=== PATIENT | female | born 1950 | race Caucasian/White ===

== ENCOUNTER 2016-08-28 16:54 | Emergency (ER) | payer BC ==
[~2016-08-28] VITALS: Ht 157.5 cm; Wt 112.0 kg
[2016-08-28 16:58] VITALS: BP 140/67; PULSE 80; RESP 20; TEMP 98.9; O2SAT 97
--- NOTE | 2016-08-28 17:08 | PD ---
Physical Exam Date Seen by Provider: Aug 28, 2016 Time Seen by Provider: 17:07 Narrative 65 yr old female here with right knee pain. Patient says she has been having some issues with her knee and recently hear and felt a tearing type of pain. She has recently traveled on a plane for 12 hours and also had a 1 hour bus trip. She went to an urgent care and had xrays done (negative), but was told to get checked for DVT. She is awaiting bed placement. Data Data Last Documented VS Vital Signs Date Time Temp Pulse Resp B/P Pulse Ox O2 Delivery O2 Flow Rate FiO2 08/28/16 16:58 98.9 80 20 140/67 97 Room Air [facility] Medical Record Reviewed: Yes Supervised Visit with LD: Rachel Zhang Aug 28, 2016 17:08
--- NOTE | 2016-08-28 18:07 | PD ---
HPI . patient here with right knee/leg pain (Rachel Haynes) Chief Complaint: Musculoskeletal Complaint Time Seen by Provider: 18:07 (Rachel Haynes) Time Seen by Provider: 19:18 (Mikey Cosby MD) Travel History International Travel<30 days: No Contact w/Intl Traveler<30days: Yes Name of Country Traveled to: [place] Traveled to known affect area: No (Rachel Haynes) History of Present Illness HPI 65-year-old female with history of right knee pain here with complaints of worsening right knee pain. Patient apparently felt a tearing type of pain in her right knee. She went to an urgent care and had x-rays done, which were all negative. Patient did recently travel to [facility] on a 12 hour flight and also had a bus trip. She was told come to the emergency department to rule out DVT. She denies any leg swelling or shortness of breath. She really wants to do with going on with her knee. She is able to flex and extend without any abnormality. There is no tenderness to palpation. She denies any recent injury. She's not had any recent falls. (Rachel Haynes) PFS Past Medical History Diabetes: Yes (METFORMIN 08/28/16 1030) (Rachel Haynes) Social History Tobacco Use: No (Mikey Cosby MD) Allergies-Medications (Allergen,Severity, Reaction): Coded Allergies: No Known Allergies (Unverified , 08/28/16) Reported Meds & Prescriptions Reported Meds & Active Scripts Active Reported Lexapro (Escitalopram Oxalate) 10 Mg Tab 10 Mg PO HS Lisinopril 5 Mg Tab 5 Mg PO DAILY Glipizide Unknown Strength Tab Unknown Dose PO BIDAC Take 30 minutes before a meal Metformin (Metformin HCl) 500 Mg Tab 500 Mg PO BID With meals (Mikey Cosby MD) Review of Systems General / Constitutional: No: Fever Eyes: No: Visual changes HENT: No: Headaches Cardiovascular: No: Chest Pain or Discomfort Respiratory: No: Shortness of Breath Gastrointestinal: No: Abdominal Pain Genitourinary: No: Dysuria Musculoskeletal: Positive: Pain (right knee and popliteal fossa pain) Skin: No Rash Neurologic: No: Weakness Psychiatric: No: Depression Endocrine: No: Polydipsia Hematologic/Lymphatic: No: Easy Bruising (Rachel Haynes) Physical Exam Narrative GENERAL: AAO x 3, no acute distress, Well-nourished, well-developed patient. SKIN: Warm and dry. No visible rashes or bruising. No edema or ecchymosis to the right lower extremity HEAD: Normocephalic and atraumatic. EYES: No scleral icterus. No injection or drainage. ENT: No nasal drainage noted. Mucous membranes pink. Airway patent. NECK: Supple, trachea midline. No JVD. CARDIOVASCULAR: Regular rate and rhythm without murmurs, gallops, or rubs. RESPIRATORY: Breath sounds equal bilaterally. No accessory muscle use. No rhonchi or rales. GASTROINTESTINAL: Abdomen soft, non-tender, nondistended. EXTREMITIES: No cyanosis or edema. No point tenderness to the right knee or lower extremity. Full flexion-extension of the knee joint. Pedal pulses intact bilaterally. BACK: No obvious deformity. NEURO: CN II-12 intact, strength in the bilateral lower extremities 5.5. PSYCH: AAO x 3, normal affect. (Rachel Haynes) Data Data Orders Us Leg Venous Doppler (08/28/16 18:07) Ketorolac Inj (Toradol Inj) (08/28/16 18:45) Acetamin-Hydrocod 325-5 Mg ([place] 5-325 (08/28/16 20:15) (Mikey Cosby MD) MDM Medical Decision Making Medical Screen Exam Complete: Yes Emergency Medical Condition: Yes Medical Record Reviewed: Yes Differential Diagnosis right knee pain, less likely DVT, ligamentous injury of the knee Narrative Course 65 year-old female here with complaints of right knee pain. Venous Doppler of the right extremity ordered to rule out DVT. Toradol administered for pain control in the ED. The next provider coming on will disposition the patient. (Rachel Haynes) Condition: Stable Rachel Haynes Aug 28, 2016 18:07 Mikey Cosby MD Sep 07, 2016 18:30
[2016-08-28] MEDS ORDERED: KETOROLAC TROMETHAMINE 60 MG/2 ML (IM) VIAL IM ONE (18:45)
--- NOTE | 2016-08-28 19:25 | PD ---
Physical Exam Date Seen by Provider: Aug 28, 2016 Time Seen by Provider: 19:23 Narrative Care was transferred to ks pending US results. Patient complains of posterior right knee pain that wraps around to the distal anterior aspect of the knee. Patient states she injured it approximately 1 month ago, but had a recent trip to [facility]. She states she had an x-ray done at an urgent care center and was referred to the ED to rule out DVT. She reports history of diabetes. No fevers. No chest pain. No shortness of breath. No abdominal pain, nausea, vomiting, diarrhea. Patient denies any other complaints at this time. Data Data Last Documented VS Vital Signs Date Time Temp Pulse Resp B/P Pulse Ox O2 Delivery O2 Flow Rate FiO2 08/28/16 16:58 98.9 80 20 140/67 97 Room Air Orders Us Leg Venous Doppler (08/28/16 18:07) Ketorolac Inj (Toradol Inj) (08/28/16 18:45) Acetamin-Hydrocod 325-5 Mg ([place] 5-325 (08/28/16 20:15) MDM Supervised Visit with LD: No Interpretation(s) Venous doppler US of the right leg - CONCLUSION: Normal examination. Narrative Course Patient reports right knee pain, here to rule out DVT. Venous doppler US of the right lower extremity shows no DVT. Patient is stable for discharge. She is to follow up with an orthopedist if pain continues or worsens. She verbalizes agreement and understanding. Diagnosis Primary Impression: Knee pain Qualified Code: M25.561 - Acute pain of right knee Referrals: Orthopedist call for appointment Patient Instructions: General Instructions, Knee Pain (ED) Additional Instruction: Follow up with an orthopedist if pain continues or worsens. Return to the emergency department for any acute, worsening of symptoms. Med/Other Pt SpecificInfo: No Change to Meds Disposition: 01 DISCHARGE HOME Condition: Stable Marija Brenner LAUREN Aug 28, 2016 19:25
[2016-08-28] MEDS ORDERED: METF500T PO (19:39)
[2016-08-28] MEDS ORDERED: GLIP5TAB8 PO (19:39)
[2016-08-28] MEDS ORDERED: LEXA10TA PO (19:40)
[2016-08-28] MEDS ORDERED: LISI-519 PO (19:40)
[2016-08-28] MEDS ORDERED: ACETAMINOPHEN/HYDROcodone 325 MG/5 MG TAB PO ONE (20:15)
--- NOTE | 2016-08-28 21:23 | RADRPT ---
EXAM DATE/TIME: 08/28/2016 20:33 [facility] COMPARISON: No previous studies available for comparison. INDICATIONS : Right leg pain. MEDICAL HISTORY : Diabetes. Right leg pain. SURGICAL HISTORY : Tonsillectomy. ENCOUNTER: Initial ACUITY: 1 day PAIN SCORE: 9/10 LOCATION: Right leg. TECHNIQUE: Venous ultrasound of the leg was performed from the inguinal ligament to the proximal calf. Real-leanna e, color Doppler and spectral tracing, compression and augmentation techniques were used. FINDINGS: There is normal compressibility of the deep venous system from the inguinal region to the proximal ca lf. No echogenic clot is seen in the lumen of the common femoral, femoral, popliteal, and posterior tibial veins. There is a normal response of the venous system to proximal and distal augmentation an d respiration. CONCLUSION: Normal examination. Soheila Bejarano MD on August 28, 2016 at 21:21 Board Certified Radiologist. This report was verified electronically.
== END 2016-08-28 22:17 | disposition home or self-care (01) ==
LOC: NEPC 16:54
DX: M25.561 Pain in right knee (principal); M79.604 Pain in right leg
CPT/HCPCS: 93971; 96372; 99285; J1885